=== PATIENT | male | born 1985 | race Caucasian/White ===

== ENCOUNTER 2020-09-23 12:31 | Emergency (ER) | payer SELFPAY ==
[2020-09-23] MEDS ORDERED: KETOROLAC TROMETHAMINE INJ 30 MG/ML VIAL IM ONE (12:43)
[2020-09-23 12:45] VITALS: BP 170/103; TEMP 97.4; O2SAT 98
--- NOTE | 2020-09-23 12:46 | ED.PDOC ---
History of Present Illness - General Chief Complaint: Dental/Mouth Stated Complaint: toothache Time Seen by Provider: 09/23/20 12:34 Source: patient, RN notes reviewed, Vital Signs reviewed Exam Limitations: no limitations - History of Present Illness Initial Comments: 35 yo male with multiple dental issues having dental pain x 1 week. States his filling came out. Pain was so bad, he used a screw to pop the rest of the filling out then filled it with cement. No fevers, but thinks its getting infected. using motrin/alleve for pain which only helps a little. patient plans on seeing dentist this Thursday. Home Medications: Ambulatory Orders Clindamycin HCl [Clindamycin Hydrochloride] 300 mg PO Q8H #21 cap 09/23/20 Ibuprofen 800 mg PO TID PRN #30 tab 09/23/20 Review of Systems - Review of Systems Constitutional: Denies: chills, fever EENTM: States: mouth pain, mouth swelling Respiratory: Denies: cough, short of breath Cardiology: Denies: chest pain, palpitations Gastrointestinal/Abdominal: Denies: abdominal pain, diarrhea Genitourinary: Denies: discharge, frequency Musculoskeletal: Denies: back pain, muscle pain Skin: Denies: rash Neurological: Denies: headache, numbness Endocrine: Denies: unexplained weight loss Hematologic/Lymphatic: Denies: easy bleeding, easy bruising Past Medical History (General) - Patient Medical History Hx Seizures: No Hx Stroke: No Hx Dementia: No Hx Asthma: No Hx of COPD: No Hx Cardiac Disorders: No Hx Congestive Heart Failure: No Hx Pacemaker: No Hx Hypertension: No Hx Thyroid Disease: No Hx Diabetes: No Hx Gastroesophageal Reflux: No Hx Renal Disease: No Hx Cancer: No Physical Exam - Physical Exam General Appearance: Alert, Comfortable, No apparent distress, Well Developed, Well Groomed, Well Hydrated, Well Nourished Eye Exam: bilateral normal Throat Exam: other - multiple chipped teeth, carries, tooth number 3 with cement noted, some erythema, no abscess noted. Neck: non-tender, full range of motion, supple, normal inspection, trachea midline Cardiovascular/Respiratory: regular rate, rhythm, no M/R/G, normal peripheral pulses, no JVD, normal breath sounds, no respiratory distress Abdominal Exam: non-tender Neurologic: nurse school II-XII nml as tested, no motor/sensory deficits, alert, normal mood/affect, oriented x 3 Skin Exam: normal color, warm/dry Progress - Progress Progress: 09/23/20 12:53 The data reviewed when caring for this patient included: nurse notes, prior records, etc. The history and assessments from nurses notes were reviewed and considered, and the patient's home medication list was also reviewed and considered. My assessment and the results of testing completed here in the ED were discussed with the patient/family. All questions were answered, and they express understanding of my assessment and the plan. They have been instructed to return if their symptoms worsen, and have been asked to follow up with their dentist to recheck today's presenting complaint. Strict return precautions given. I have reviewed medication, benefits, alternatives and side effects. Patient decided to proceed with medication. Lenora Fox DO #[id number] Departure - Departure Clinical Impression: Dental caries Dental injury Qualifiers: Encounter type: initial encounter Qualified Code(s): S09.93XA - Unspecified injury of face, initial encounter Time of Disposition: 12:47 Disposition: Discharge to Home or Self Care Condition: Good Departure Forms: ED Discharge - Pt. Copy, Patient Portal Self Enrollment Instructions: DI for Mouth Pain, Dental Pain (DC), How to Care for Your Mouth and Teeth Diet: other - soft diet Activity: increase activity as tolerated Prescriptions: Clindamycin HCl [Clindamycin Hydrochloride] 300 mg PO Q8H #21 cap Ibuprofen 800 mg PO TID PRN #30 tab PRN Reason: Pain Home Medications: Ambulatory Orders Clindamycin HCl [Clindamycin Hydrochloride] 300 mg PO Q8H #21 cap 09/23/20 Ibuprofen 800 mg PO TID PRN #30 tab 09/23/20
== END 2020-09-23 13:06 | disposition home or self-care (01) ==
LOC: ER 12:31
DX: K02.9 Dental caries, unspecified (principal); S02.5XXA Fracture of tooth (traumatic), initial encounter for closed fracture; X58.XXXA Exposure to other specified factors, initial encounter; Y92.9 Unspecified place or not applicable